=== PATIENT | female | born 1940 | race Caucasian/White ===

== ENCOUNTER 2019-07-13 10:32 | Outpatient (CLI) | payer MEDICARE, OTHER ==
[2019-07-13 11:04] LABS: BASOPHILS % 0.3 % (0.0-1.5); NEUTROPHILS # 2.9 # k/uL (1.4-7.7)
[2019-07-13 11:40] LABS: HDL 60 mg/dL (>40); MAGNESIUM 1.9 mIU/l (1.6-2.3); eGFR (Non-African) > 60
--- NOTE | 2019-07-14 14:26 | Diagnostic Imaging Report ---
LISBET DAVID [facility] [address] [facility].[address] [id number] Report Submission Date: Jul 13, 2019 11:43:21 AM CDT Patient Study Name: JAMSHID ALLEN Date: Jul 13, 2019 10:46:08 AM CDT Modality Type: DX Gender: F Description: L SPINE 2 OR 3 VIEWS : 36 Institution: [facility] Physician: LISBET DAVID Lumbar spine 3 views Indication: Low back pain Findings: 3 views of the lumbar spine without prior shows posterior fusion of L4 through the sacrum with bipedicle screws and metallic hardware. There is grade I anterolisthesis of L4 on L5. There is no acute fracture. Postoperative changes of bilateral SI joints is present. Impression: Postoperative changes and grade 1 anterolisthesis L4 on L5 Electronically signed on Jul 13, 2019 11:43:21 AM CDT by: Eddie QUEEN
--- NOTE | 2019-07-14 14:27 | Diagnostic Imaging Report ---
LISBET DAVID [facility] [address] [facility] [address] [address] Report Submission Date: Jul 13, 2019 11:41:18 AM CDT Patient Study Name: JAMSHID ALLEN Date: Jul 13, 2019 10:46:08 AM CDT Modality Type: DX Gender: F Description: BILAT HIPS 2V (W/PEL IF DONE) : 36 Institution: [facility] Physician: LISBET DAVID Pelvis AP view and bilateral hips 1 view each Indication: Pelvic pain. Low back pain. Right sided pelvic pain. Findings: Frontal view of the pelvis and 1 view of each hip shows postoperative changes lower lumbar spine. There is no evidence acute fracture, subluxation or dislocation. There are post-operative changes overlying both SI joints. There is bony demineralization. Impression: postoperative changes Electronically signed on Jul 13, 2019 11:41:18 AM CDT by: Eddie QUEEN
== END 2019-07-13 10:34 ==
LOC: LAB 10:32
PROVIDERS: ATTEND Nurse Practitioner Family
DX: G25.81 Restless legs syndrome (principal); E03.9 Hypothyroidism, unspecified; E78.5 Hyperlipidemia, unspecified; M54.5 Low back pain; M25.551 Pain in right hip
CPT/HCPCS: 36415; 72100; 73521; 80053; 80061; 83735; 84439; 84443; 84481; 85025

== ENCOUNTER 2019-08-02 10:59 | Outpatient (CLI) | payer MEDICARE, OTHER ==
--- NOTE | 2019-08-19 07:10 | CONSULTATION REPORT ---
DATE OF VISIT: 08/02/2019 CHIEF COMPLAINT: Back pain. HISTORY OF PRESENT ILLNESS: Ms. Prieto is here for evaluation of her low back pain. The patient has had two back surgeries, one was what the patient describes as an LFD in 2008 and then she had a fusion of the lower part of her lumbar spine in 2010 and then in 2016 she also had an SI joint fusion. She describes her back pain as constant, aching, sharp, shooting and throbbing. She has radiation to bilateral hips down the anterolateral aspects of her legs wrapping to her calves and all the way down to her feet. Left is greater than right. The patient does complain of numbness and tingling in bilateral feet as well as bilateral lower extremity weakness. She denies any urinary/bowel incontinence or saddle anesthesia. Her pain is worse with sitting, walking and if she lies on her left side. Her pain is also worse with bending and kneeling. Her pain improves with sdcm-mqr-asienyd Tylenol Extra Strength, repositioning and cool rice packs. The patient was seen by [facility] in [place] from approximately 2007 to 2016. There they prescribed tramadol and gabapentin. The patient describes approximately 25 injections for her low back and SI joint and hip pain. She has tried physical therapy, the last being two to three years ago as well as aqua therapy two years ago; neither of which helped for any duration of time. She did have family day care worker prior to her surgeries in 1995 and 1996 that did improve her symptoms. IMAGING REVIEWED: The patient did have x-rays here at [facility] on July 13, 2019. The first was an AP pelvis and bilateral hips. Findings of postoperative changes in the lumbar spine. No evidence of acute fracture, subluxation or dislocation. Postoperative changes overlying both SI joints. There is bony demineralization. The second study was a lumbar spine with findings of posterior fusion of the L4 through the sacrum with bi-pedicle screws and metallic hardware. Grade 1 anterolisthesis of L4 on L5. No acute fractures. Postoperative changes of bilateral SI joints. PAST MEDICAL HISTORY: Hypothyroidism, restless leg syndrome, hyperlipidemia, chronic low back pain, bilateral hip pain, depression and peripheral neuropathy. PAST SURGICAL HISTORY: Appendectomy, cataract surgery, , total hysterectomy, laparotomy, lumbar fusion and SI joint fusion. SOCIAL HISTORY: She was in January 2019. Occupation retired. Smoking: previous one pack per day for 35 years, quit in 1977. ETOH none. Recreational drug none. FAMILY HISTORY: Mother with hypertension and NH. DRUG ALLERGIES: Prozac causes itching. CURRENT MEDICATIONS: Levothyroxine 50 mcg one p.o. daily, sertraline 100 mg one and a half tabs p.o. daily, vitamin E 400 IU one p.o. daily, vitamin D3 5000 IU one p.o. daily, simvastatin 40 mg one p.o. daily, ropinirole 2 mg two tabs q a.m. and two tabs q p.m., lorazepam 0.5 mg p.r.n., Combigan 0.5 mg one drop each eye each a.m. and p.m., latanoprost 2.5 mg one drop each eye each evening, Extra Strength Tylenol as needed and nupu-enz-[id number] sleep aid one to two as needed. REVIEW OF SYSTEMS: A complete 14-point review of systems was completed and positive for fatigue, weakness, weight gain/loss, glasses, shortness of breath with activity, anxiety/panic, low back pain and bilateral hip pain. OBJECTIVE: General: This is a well-developed, well-nourished elderly female patient presenting in no apparent distress. Vital Signs: She is 5 feet, 2 inches tall. Weighs 185 pounds. Temperature is 97.1, pulse 66, respiratory rate 16, blood pressure 131/77 with an SaO2 of 98% on room air. She is rating her pain a 6/10 today. Psych: She is alert and oriented x3. She is calm, pleasant and cooperative. HEENT: She is normocephalic and atraumatic. Pupils are equal and round without miosis. Sclerae clear. Trachea is midline. No lymphadenopathy. Cardiovascular: Normal S1, S2. Regular rate and rhythm. No murmurs, gallops or rubs. Pulmonary: Clear to auscultation bilaterally. Nonlabored respirations at rest. GI: Bowel sounds present in all four quadrants. Abdomen is soft, nondistended and nontender. Musculoskeletal: The patient achieves full trunk flexion. Full extension with end range pain. Bilateral Romero's is positive for low back pain only. She has tenderness to palpation over the bilateral L3-L4, L4-L5 and L5-S1 facets and spinous processes. She also has tenderness to palpation over bilateral lumbar paraspinals. She has tenderness to palpation over bilateral SI joints as well as bilateral greater trochanteric bursas. Bilateral lower extremity strength is equal and strong in all areas, graded 5/5. Seated straight leg raise is negative. Bilateral patellar reflexes are 2+. Neuro: Cranial nerves II-XII are grossly intact. Sensation to light touch is intact bilateral lower extremities. The patient does walk with an antalgic gait. IMPRESSION: 1. Chronic lumbago. 2. Lumbar radiculitis versus radiculopathy. 3. Bilateral greater trochanteric bursitis. 4. Bilateral sacroiliitis. PLAN: 1. I am going to have the patient get an MRI of her lumbar spine without contrast to evaluate her low back pain symptoms further. 2. I had considered referring the patient to Dr. Mckeon, but after review and with consideration of her lumbar fusion and her bilateral SI joint fusion I do not believe she is a good candidate for CHIN. 3. I am ordering a bone density as there was demineralization on her pelvic imaging. 4. The patient is to follow up after her MRI scan exam and bring a disk to determine further treatment. The patient did verbalize understanding and agrees to the current treatment plan. ARACELI Juarezurse Practitioner (Dictated/not signed) /[employer] [id number] /[id number] jrd cc: Som Pierre MD [facility]
--- NOTE | 2019-08-30 15:13 | Diagnostic Imaging Report ---
PILY ALLEN [facility] [address] [address] [address] Report Submission Date: Aug 08, 2019 10:06:32 AM CDT Patient Study Name: JAMSHID ALLEN Date: Aug 08, 2019 12:00:00 AM CDT Modality Type: DEXA\OT Gender: F Description: DEXA : 36 Institution: [facility] Physician: PILY ALLEN Exam: DEXA bone density study. History: Postmenopausal screening. The bone mineral density in both hips is 1.029 grams/centimeters sq which corresponds to a T-score 0.2. This is bone mineral density in the normal young adult range carrying with it a very low risk for fracture. The bone mineral density in the left forearm is 0.783 grams/centimeters squared which corresponds to a T-score -1.2. The bone mineral density in the right forearm is 0.789 grams/centimeters sq which corresponds to a T-score a -1.1. These are considered osteopenic and carries with it a low risk for fracture. Impression: Osteopenia in both forearms. No osteopenia or osteoporosis in the hips are identified. Electronically signed on Aug 08, 2019 10:06:32 AM CDT by: Frederic QUEEN
== END 2019-08-02 11:59 ==
LOC: OUT 10:59
PROVIDERS: ATTEND Nurse Practitioner Adult Health
DX: M46.1 Sacroiliitis, not elsewhere classified (principal); M70.62 Trochanteric bursitis, left hip; M70.61 Trochanteric bursitis, right hip
CPT/HCPCS: 99203; G0463

== ENCOUNTER 2019-08-08 09:03 | Outpatient (CLI) | payer MEDICARE, OTHER | END 2019-08-08 09:30 | LOC: RAD 09:03 | PROVIDERS: ATTEND Nurse Practitioner Adult Health | DX: M54.16 Radiculopathy, lumbar region (principal); L89.90 Pressure ulcer of unspecified site, unspecified stage | CPT/HCPCS: 77080 ==

== ENCOUNTER 2019-09-20 12:04 | Outpatient (CLI) | payer MEDICARE, OTHER ==
--- NOTE | 2019-10-03 15:20 | OP Clinic Progress Note ---
DATE OF VISIT: 09/20/2019 CHIEF COMPLAINT: Low back pain. HISTORY OF PRESENT ILLNESS: Ms. Prieto is an 79-year-old female patient here for followup low back pain. The patient has had two back surgeries one which is described by the patient as LFD in 2008 and then had a fusion of the lower part of her lumbar spine in 2010 and then again in 2017 she had an SI joint fusion. She describes her low back pain as constant, aching, sharp, shooting and throbbing. She has radiation into bilateral hips down the anterolateral aspects of her legs wrapping to her calves and all the way down to her feet. The left side is greater than her right. The patient does complain of numbness and tingling of bilateral feet as well as bilateral lower extremity weakness. She denies any urinary/bowel incontinence or saddle anesthesia. Her pain is worse with sitting, walking and if she lies on her left side. Her pain is also worse with bending and kneeling. Her pain improves with ztln-oml-lgbxqtn Extra Strength Tylenol, repositioning and a cool rice packs. PAST TREATMENT: The patient was seen by [facility] in [place] from approximately 2007 to 2016. The patient describes approximately 25 injections for her low back, SI joint pain, and hip pain. The patient has also tried physical therapy last time two to three years ago, as well as aqua therapy two years ago, neither of which helped for any duration. The patient did have pet care associate prior to her surgeries in 1995 and 1996 that did improve her pain symptoms. IMAGING REVIEWED: I ordered a bone density, as there was some demineralization seen on the x-rays of her low back. The DEXA scan was completed here at [facility] on August 08, 2019. Impression is osteopenia in both forearms. No osteopenia or osteoporosis in the hips are identified. At last visit, I had ordered MRI of her lumbar spine without contrast for which the patient did complete, however, she did not bring the disk today. PFS: Reviewed and without change. REVIEW OF SYSTEMS: A complete 14-point review of systems was completed and positive for fatigue, weakness, weight gain/loss, glasses, shortness of breath with activity, anxiety/panic, low back pain and bilateral hip pain. All other areas were negative. OBJECTIVE: General: This is a well-developed, well-nourished elderly female patient presenting in no acute distress. Vital Signs: The patient is 5 feet 2 inches tall, weighs 157 pounds. Temperature is 97.3. Pulse is 71. Respiratory rate is 18. Blood pressure is 155/78 with an SaO2 of 97% on room air. Pain is rated a 4/10 today. Psych: She is alert and oriented x3. She is calm, pleasant and cooperative. HEENT: She is normocephalic and atraumatic. Pupils are equal and round without miosis. Sclerae clear. Musculoskeletal: The patient continues to be tender to palpation over the bilateral L3-4, L4-5 and L5-S1 facets and spinous processes. She is also tender to palpation over bilateral lumbar paraspinals and bilateral SI joints, as well as bilateral greater trochanteric bursas. Bilateral lower extremity strength is equal and strong in all areas graded 5/5 in hip flexion, knee extension, knee flexion, dorsiflexion and plantar flexion. Bilateral patellar reflexes are graded 2+. Neurologic: Cranial nerve II-XII are grossly intact. Sensation to light touch is intact bilateral lower extremities. The patient does walk with an antalgic gait. IMPRESSION: 1. Chronic lumbago. 2. Lumbar radiculitis versus radiculopathy. 3. Bilateral greater trochanteric bursitis. 4. Bilateral sacroiliitis. PLAN: 1. The patient is to follow up just as soon as she has her MRI disk in hand, so that we can review this in the next two to four weeks. The patient verbalizes understanding and agrees to current treatment plan. ARACELI Juarezurse Practitioner /[employer] [id number] jrvarsha cc: Susy Junior
== END 2019-09-20 13:04 ==
LOC: OUT 12:04
PROVIDERS: ATTEND Nurse Practitioner Adult Health
DX: M70.61 Trochanteric bursitis, right hip (principal); M70.62 Trochanteric bursitis, left hip; M46.1 Sacroiliitis, not elsewhere classified
CPT/HCPCS: 99213; G0463

== ENCOUNTER 2019-09-27 14:02 | Outpatient (CLI) | payer MEDICARE, OTHER ==
--- NOTE | 2019-10-12 08:03 | OP Clinic Progress Note ---
DATE OF VISIT: 09/27/2019 CHIEF COMPLAINT: Back pain. HPI: Ms. Prieto is here for followup low back pain. The patient has had two back surgeries, one that the patient describes as an LFD in 2008 and then a fusion of the lower part of her lumbar spine in 2010. In 2016 she also had an SI joint fusion. She describes her low back pain as constant, aching, sharp, shooting, and throbbing. She has radiation into bilateral hips down to the anterolateral aspects of her legs wrapping to her calves and all the way down to her feet. The left side is greater than the right. The patient does complain of numbness and tingling of bilateral feet as well as bilateral lower extremity weakness. She denies any urinary/bowel incontinence or saddle anesthesia. Her pain is worse with sitting, walking and if she lies on her left side. Her pain is also worse with bending and kneeling. Her pain improves with npqi-ahn-towrpuv extra strength Tylenol, repositioning and cool rice packs. Previously the patient was seen by [facility] in [place] from approximately 2007 to 2016. The patient describes approximately 25 injections for her low back, SI joint and hip pain. The patient has also tried physical therapy, the last time 2-3 years ago, as well as aqua therapy 2 years ago, neither of which helped for any duration of time. The patient did have complex care nurse prior to her surgeries in 1995 and 1996 that did improve her pain symptoms. I had ordered a DEXA scan previously and the patient completed this on 08/08/2019. Impression: Patient has osteopenia in bilateral forearms. Osteopenia or osteoporosis in the hips were identified. I did order an MRI and the patient has completed that and brought her disk today. We will review that. IMAGING REVIEWED: The patient had a lumbar spine MRI without contrast performed on 09/07/2019 at [facility]. Impression: Bilateral neural foraminal stenosis at the L3-4 left greater than right secondary to disc bulge and facet hypertrophy. Facet hypertrophy and postoperative changes obscure the right neural foramen at L4-5. Multilevel small disc bulges are present without significant spinal canal stenosis. There is posterior hardware fixation of the L5 through S1 vertebrae with 4 mm of fixed anterolisthesis at the L5-6. Vertebral body heights are maintained. PFSH: Reviewed and without change. REVIEW OF SYSTEMS: A complete 14-point review of systems was completed and positive for fatigue, weakness, weight gain, glasses, shortness of breath with activity, anxiety/panic, low back pain and bilateral hip pain. All other areas were negative. PHYSICAL EXAMINATION: General: This is a well-developed, well-nourished elderly female patient presenting in no acute distress. Vital Signs: Height is 5 foot 2 inches. Weight 188 pounds. Temperature 97.8. Pulse 77. Respiratory rate 18. Blood pressure 138/79. SaO2 95% on room air. Pain is rated 6-7/10 today. Psych: Alert and oriented x3. She is calm, pleasant and cooperative. HEENT: Normocephalic and atraumatic. Pupils are equal and round without miosis. Sclerae are clear. Musculoskeletal: Patient continues to be tender to palpation over bilateral L3- 4, L4-5 and L5-S1 facets and spinous processes. She is also tender to palpation over the bilateral lumbar paraspinals and bilateral SI joints as well as bilateral greater trochanteric bursa. Bilateral lower extremity strength is equal and strong in all areas graded 5/5 in hip flexion, knee extension, knee flexion, dorsiflexion and plantar flexion. Neuro: Cranial nerves II-XII are grossly intact. Sensation to light touch is intact bilateral lower extremities. The patient does walk with an antalgic gait. ASSESSMENT: 1. Chronic lumbago. 2. Lumbar facet arthrosis. 3. Lumbar DDD. 4. Lumbar neural foraminal narrowing, lumbar radiculopathy. 5. Bilateral greater trochanteric bursitis. PLAN: 1. Today I have ordered lumbar epidural steroid injection at the L4-[address] Reyes. 2. I have provided the patient stretches for her bilateral greater trochanteric bursitis and she is also going to apply ice to these areas. 3. I have provided the patient with a prescription for Meloxicam 7.5 mg 1 p.o. b.i.d. dispense #60 with two refills. The patient is to take this with food and if she develops GI upset, she is to stop this. 4. 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 The patient did verbalize understanding and agreed to the current treatment plan. Tami Roman NP Nurse Practitioner CALDERON/tad JOB#: [id number] cc: uSsy Junior
== END 2019-09-27 15:02 ==
LOC: OUT 14:02
PROVIDERS: ATTEND Nurse Practitioner Adult Health
DX: M47.896 Other spondylosis, lumbar region (principal); M51.16 Intervertebral disc disorders with radiculopathy, lumbar region; M99.53 Intervertebral disc stenosis of neural canal of lumbar region; M70.62 Trochanteric bursitis, left hip; M70.61 Trochanteric bursitis, right hip
CPT/HCPCS: 99213; G0463